=== PATIENT | female | born 1990 | race Two or more races ===

== ENCOUNTER 2017-03-28 19:17 | Emergency (ER) | payer OTHER, BC ==
[~2017-03-28] VITALS: Ht 162.6 cm; Wt 73.5 kg
[~2017-03-28 19:17] MED LIST: IBUP-1223 PO; NORE0.3513 PO; OXYC-302 PO; PREN1TAB60 PO
[2017-03-28 19:37] VITALS: BP 126/80
== END 2017-03-28 20:51 | disposition home or self-care (01) ==
LOC: ED 20:45
DX: O23.12 Infections of bladder in pregnancy, second trimester (principal); Z98.890 Other specified postprocedural states; Z3A.16 16 weeks gestation of pregnancy
CPT/HCPCS: 81001; 87077; 87086; 87186; 99284

== ENCOUNTER 2017-06-09 21:08 | Outpatient (CLI) | payer OTHER, BC ==
[~2017-06-09] VITALS: Ht 162.6 cm; Wt 72.7 kg
[2017-06-09 21:17] VITALS: BP 119/67
[2017-06-09] MEDS ORDERED: NITR100C56 PO (23:56)
== END 2017-06-10 00:11 | disposition home or self-care (01) ==
LOC: LDOP 21:08
PROVIDERS: ATTEND Obstetrics & Gynecology
DX: O46.92 Antepartum hemorrhage, unspecified, second trimester (principal); Z3A.25 25 weeks gestation of pregnancy
CPT/HCPCS: 36415; 59025; 81001; 82731; 87086; 87210; 87808; 99211; G0463

== ENCOUNTER 2017-07-10 16:46 | Outpatient (CLI) | payer OTHER, BC ==
[~2017-07-10] VITALS: Ht 162.6 cm; Wt 75.0 kg
[~2017-07-10 16:46] MED LIST changes: +NITR100C56 PO
[2017-07-10 17:45] VITALS: BP 101/62
[2017-07-10 18:54] LABS: MICROSCOPIC AUTO
[2017-07-10 18:56] LABS: CULTURE INDICATED? YES
== END 2017-07-10 18:30 | disposition home or self-care (01) ==
LOC: LDOP 16:46
PROVIDERS: ATTEND Obstetrics & Gynecology
DX: O46.8X2 Other antepartum hemorrhage, second trimester (principal)
CPT/HCPCS: 59025; 81001; 87086; 99211; G0463

== ENCOUNTER 2017-09-19 13:16 | Outpatient (CLI) | payer BC, OTHER ==
[2017-09-19 13:38] VITALS: BP 124/70
[2017-09-19] MEDS ORDERED: TERBUTALINE 1 MG/ML, 1ML SQ ONE (14:00)
[2017-09-19] MEDS ORDERED: TERBUTALINE 1 MG/ML, 1ML ONE (14:20)
== END 2017-09-19 15:05 | disposition home or self-care (01) ==
LOC: LDOP 13:16
PROVIDERS: ATTEND Obstetrics & Gynecology
DX: O99.343 Other mental disorders complicating pregnancy, third trimester (principal); F52.1 Sexual aversion disorder; Z3A.00 Weeks of gestation of pregnancy not specified
CPT/HCPCS: 59025; 99211; G0463

== ENCOUNTER 2017-09-29 13:15 | Inpatient (IN) | payer OTHER ==
[~2017-09-29] VITALS: Ht 162.6 cm; Wt 78.6 kg
[2017-09-29] MEDS ORDERED: OXYTOCIN 30U/ 0.9% NaCL 500ML 500 ML IV ONE (23:08)
[2017-09-29] MEDS ORDERED: D5%-LACTATED RINGERS 1,000 ML IV SCH (23:08)
[2017-09-29] MEDS ORDERED: OXYTOCIN 30U/ 0.9% NaCL 500ML 500 ML IV PRN (23:08)
[2017-09-29] MEDS ORDERED: NEWBORN KIT ONE (23:29)
[2017-09-29] MEDS ORDERED: FENTANYL PF 100 MCG/2ML IV PRN (23:30)
[2017-09-29] MEDS ORDERED: MISOPROSTOL 25 MCG TABLET VG PRN (23:30)
[2017-09-29] MEDS ORDERED: ONDANSETRON 2MG/ML, 2ML IVPush PRN (23:30)
[2017-09-29] MEDS ORDERED: FENTANYL PF 100 MCG/2ML IVPush PRN (23:30)
[2017-09-29] MEDS ORDERED: TERBUTALINE 1 MG/ML, 1ML IVPush PRN ×2 (23:30)
[2017-09-29] MEDS ORDERED: SODIUM CITRATE/CITRIC ACID 30 ML UDC PO PRN (23:30)
[2017-09-29] MEDS: LACTATED RINGERS 1,000 ML IV SCH (23:35)
[2017-09-29] MEDS ORDERED: OXYTOCIN 30U/ 0.9% NaCL 500ML 500 ML ONE (23:43)
[2017-09-29] MEDS ORDERED: MISOPROSTOL 25 MCG TABLET ONE (23:43)
[2017-09-29] MEDS ORDERED: MISOPROSTOL 200 MCG TABLET ONE (23:44)
[2017-09-29] MEDS ORDERED: LIDOCAINE 1%, 20ML ONE (23:44)
[2017-09-29 23:45] VITALS: BP 120/71
[2017-09-29 23:51] LABS: BASOPHILS # (AUTO) 0.07 x10^3/uL (0-0.1); BASOPHILS % (AUTO) 1 % (0-1); EOSINOPHILS # (AUTO) 0.06 x10^3/uL (0-0.4); EOSINOPHILS % (AUTO) 1 % (1-7); LYMPHOCYTES # (AUTO) 2.11 x10^3/uL (1-3.4); LYMPHOCYTES % (AUTO) 21 % (22-44); MD NO; MEAN CORPUSCULAR HGB CONC 33.8 g/dL (32.4-35.8); MEAN CORPUSCULAR VOLUME 82.7 fL (80-100); MEAN PLATELET VOLUME 7.7 fL (7.4-10.4); MONOCYTES # (AUTO) 0.62 x10^3/uL (0.2-0.8); MONOCYTES % (AUTO) 6 % (2-9); NEUTROPHILS # (AUTO) 7.05 x10^3/uL (1.8-6.8); NEUTROPHILS % (AUTO) 71 % (42-75); PLATELET COUNT 272 x10^3/uL (130-400); RED BLOOD COUNT 4.48 x10^6/uL (3.82-5.3); RED CELL DISTRIBUTION WIDTH 14.7 % (9.6-15.2)
[2017-09-30] MEDS: LACTATED RINGERS 1,000 ML IV SCH ×3 (05:15→11:06)
[2017-09-30] MEDS ORDERED: FENTANYL/BUPIV./NS/PF 250 ML EPIDCONT ONE (10:48)
[2017-09-30] MEDS ORDERED: BUPIVACAINE 0.25% ONE (10:48)
[2017-09-30] MEDS ORDERED: FENTANYL PF 100 MCG/2ML ONE (10:48)
[2017-09-30] MEDS ORDERED: LACTATED RINGERS 1,000 ML IVBOLUS PRN (12:00)
[2017-09-30] MEDS ORDERED: FENTANYL/BUPIV./NS/PF 250 ML EPIDCONT SCH (12:00)
[2017-09-30] MEDS ORDERED: EPHEDRINE 50 MG/ML, 1ML IVPush PRN (12:00)
[2017-09-30] MEDS ORDERED: LACTATED RINGERS 1,000 ML IV SCH (12:00)
[2017-09-30] MEDS ORDERED: ONDANSETRON 2MG/ML, 2ML IVPush PRN (12:00)
[2017-09-30] MEDS ORDERED: ONDANSETRON 2MG/ML, 2ML ONE (13:16)
[2017-09-30] MEDS ORDERED: LACTATED RINGERS 1,000 ML INTUTE PRN (14:00)
[2017-09-30] MEDS ORDERED: OXYTOCIN 30U/ 0.9% NaCL 500ML 500 ML IV SCH ×2 (16:43)
[2017-09-30] MEDS ORDERED: ONDANSETRON 2MG/ML, 2ML IV PRN (17:00)
[2017-09-30] MEDS ORDERED: CALCIUM CARBONATE 500 MG TAB.CHEW PO PRN (17:00)
[2017-09-30] MEDS ORDERED: HYDROcodone/APAP 5/325 TABLET PO PRN (17:00)
[2017-09-30] MEDS ORDERED: BISACODYL 10 MG SUPP PR PRN (17:00)
[2017-09-30] MEDS ORDERED: ACETAMINOPHEN 325 MG TABLET PO PRN ×3 (17:00)
[2017-09-30] MEDS ORDERED: DOCUSATE 100 MG CAPSULE PO PRN (17:00)
[2017-09-30] MEDS ORDERED: METHYLERGONOVINE 0.2 MG/ML IM PRN (17:00)
[2017-09-30] MEDS ORDERED: MISOPROSTOL 200 MCG TABLET PR PRN (17:00)
[2017-09-30 19:55] VITALS: BP 112/69
[2017-10-01 00:20] VITALS: BP 96/55
[2017-10-01] MEDS: IBUPROFEN 600 MG TABLET PO PRN ×3 (00:22→12:20)
[2017-10-01 04:00] VITALS: BP 96/62
[2017-10-01 05:29] LABS: BASOPHILS % (AUTO) 1 % (0-1); EOSINOPHILS # (AUTO) 0.08 x10^3/uL (0-0.4); EOSINOPHILS % (AUTO) 1 % (1-7); LYMPHOCYTES # (AUTO) 2.27 x10^3/uL (1-3.4); LYMPHOCYTES % (AUTO) 19 % (22-44); MD NO; MEAN CORPUSCULAR HEMOGLOBIN 27.7 pg (27.0-34.8); MEAN CORPUSCULAR HGB CONC 32.8 g/dL (32.4-35.8); MEAN CORPUSCULAR VOLUME 84.2 fL (80-100); MEAN PLATELET VOLUME 7.7 fL (7.4-10.4); MONOCYTES # (AUTO) 0.64 x10^3/uL (0.2-0.8); MONOCYTES % (AUTO) 5 % (2-9); NEUTROPHILS # (AUTO) 8.83 x10^3/uL (1.8-6.8); NEUTROPHILS % (AUTO) 74 % (42-75); PLATELET COUNT 231 x10^3/uL (130-400); RED BLOOD COUNT 4.22 x10^6/uL (3.82-5.3); RED CELL DISTRIBUTION WIDTH 14.9 % (9.6-15.2)
[2017-10-01 08:30] VITALS: BP 99/62
[2017-10-01] MEDS ORDERED: PRENATAL VIT/IRON/FA 1 EACH TABLET PO SCH (09:00)
[2017-10-01 12:00] VITALS: BP 102/68
[2017-10-01] MEDS ORDERED: IBUP-1222 PO (13:45)
[2017-10-01] MEDS ORDERED: DOCU-131 PO (13:45)
== END 2017-10-01 17:59 | disposition home or self-care (01) | DRG 775 ==
LOC: LDIP 22:27 → 2NW 09-30 19:29
PROVIDERS: ADMIT Obstetrics & Gynecology; ATTEND Obstetrics & Gynecology
PROC: 10E0XZZ Delivery of Products of Conception, External Approach (ICD-10-PCS; principal; 2017-09-30)
PROC: 10907ZC Drainage of Amniotic Fluid, Therapeutic from Products of Conception, Via Natural or Artificial Opening (ICD-10-PCS; 2017-09-30)
PROC: 3E0R3BZ Introduction of Anesthetic Agent into Spinal Canal, Percutaneous Approach (ICD-10-PCS; 2017-09-30)
PROC: 00HU33Z Insertion of Infusion Device into Spinal Canal, Percutaneous Approach (ICD-10-PCS; 2017-09-30)
DX: O76 Abnormality in fetal heart rate and rhythm complicating labor and delivery (principal); D64.9 Anemia, unspecified; O32.9XX0 Maternal care for malpresentation of fetus, unspecified, not applicable or unspecified; O99.02 Anemia complicating childbirth; O32.0XX0 Maternal care for unstable lie, not applicable or unspecified; Z37.0 Single live birth; Z3A.39 39 weeks gestation of pregnancy; Z83.3 Family history of diabetes mellitus
CPT/HCPCS: 36415; 76815; 85025; 86850; 86900; J2405; J3010; J7120; J7121

== ENCOUNTER 2019-04-17 00:56 | Outpatient (CLI) | payer OTHER ==
[~2019-04-17] VITALS: Ht 162.6 cm; Wt 75.0 kg
[~2019-04-17 00:56] MED LIST changes: +DOCU-131 PO; +IBUP-1222 PO
[2019-04-17 01:23] LABS: MICROSCOPIC INDICATED
[2019-04-17 01:26] LABS: AMPHETAMINE SCREEN, URINE Negative (Negative); BARBITURATE SCREEN, URINE Negative (Negative); BENZODIAZEPINE SCREEN, URINE Negative (Negative); CANNABINOID SCREEN, URINE Negative (Negative); COCAINE SCREEN, URINE Negative (Negative); METHADONE SCREEN, URINE Negative (Negative); OPIATE SCREEN, URINE Negative (Negative)
[2019-04-17] MEDS: LACTATED RINGERS 1,000 ML IV SCH ×4 (01:43→05:38)
[2019-04-17] MEDS ORDERED: POTASSIUM CHLORIDE 20 MEQ, MAGNESIUM SULFATE 1 GM, FOLIC ACID 1 MG, THIAMINE 200 MG, MV... IV SCH (03:00)
[2019-04-17] MEDS ORDERED: ONDANSETRON 2MG/ML, 2ML IVPush PRN ×2 (03:00→08:00)
[2019-04-17] MEDS ORDERED: ONDANSETRON 2MG/ML, 2ML ONE ×2 (04:05→07:53)
[2019-04-17 05:29] LABS: MICROSCOPIC INDICATED
[2019-04-17] MEDS ORDERED: ACETAMINOPHEN 325 MG TABLET ONE (06:21)
[2019-04-17] MEDS ORDERED: ACETAMINOPHEN 325 MG TABLET PO PRN (06:30)
[2019-04-17 08:33] LABS: BASOPHILS # (AUTO) 0.02 x10^3/uL (0-0.1); BASOPHILS % (AUTO) 0 % (0-1); EOSINOPHILS % (AUTO) 0 % (1-7); LYMPHOCYTES # (AUTO) 1.49 x10^3/uL (1-3.4); LYMPHOCYTES % (AUTO) 17 % (22-44); MD NO; MEAN CORPUSCULAR HEMOGLOBIN 28.6 pg (27.0-34.8); MEAN CORPUSCULAR HGB CONC 33.5 g/dL (32.4-35.8); MEAN CORPUSCULAR VOLUME 85.3 fL (80-100); MEAN PLATELET VOLUME 6.8 fL (7.4-10.4); MONOCYTES # (AUTO) 0.34 x10^3/uL (0.2-0.8); MONOCYTES % (AUTO) 4 % (2-9); NEUTROPHILS # (AUTO) 7.19 x10^3/uL (1.8-6.8); NEUTROPHILS % (AUTO) 80 % (42-75); PLATELET COUNT 163 x10^3/uL (130-400); RED BLOOD COUNT 4.12 x10^6/uL (3.82-5.3); RED CELL DISTRIBUTION WIDTH 13.3 % (9.6-15.2)
[2019-04-17 08:45] LABS: ALBUMIN 2.2 g/dL (3.4-5.0); ANION GAP 9 mmol/L (5-15); CALCIUM 7.4 mg/dL (8.5-10.1); CHLORIDE 107 mmol/L (98-107)
[2019-04-17 08:48] LABS: ALANINE AMINOTRANSFERASE 19 U/L (12-78); ALKALINE PHOSPHATASE 76 U/L (45-117); CREATININE 0.36 mg/dL (0.55-1.02); TOTAL PROTEIN 5.3 g/dL (6.4-8.2)
== END 2019-04-17 09:42 | disposition home or self-care (01) ==
LOC: LDOP 00:56 → LDIP 02:02 → UNDOADMOB 02:02 → LDOP 09:42 → UNDODISOB 09:42
PROVIDERS: ATTEND Obstetrics & Gynecology
DX: O99.283 Endocrine, nutritional and metabolic diseases complicating pregnancy, third trimester (principal); O99.353 Diseases of the nervous system complicating pregnancy, third trimester; O99.313 Alcohol use complicating pregnancy, third trimester; O26.893 Other specified pregnancy related conditions, third trimester; O21.2 Late vomiting of pregnancy; R10.30 Lower abdominal pain, unspecified; Z3A.34 34 weeks gestation of pregnancy
CPT/HCPCS: 36415; 59025; 80053; 80307; 81001; 85025; 87086; 96365; 96366; 96375; 96376; 99201; J2405; J3411; J3475; J3480; J7120; J7121; 96360; 96361; 96374; G0378; G0463

== ENCOUNTER 2019-12-08 10:49 | Emergency (ER) | payer MEDICAID, OTHER ==
[~2019-12-08] VITALS: Ht 162.6 cm; Wt 70.7 kg
[2019-12-08] MEDS ORDERED: FAMOTIDINE 20 MG/2 ML ONE (11:28)
[2019-12-08] MEDS ORDERED: ONDANSETRON 2MG/ML, 2ML ONE (11:28)
[2019-12-08] MEDS ORDERED: THIAMINE 100 MG/ML, 2ML ONE (11:28)
[2019-12-08] MEDS ORDERED: SODIUM CHLORIDE FLUSH 10ML SYR IVF ONE (11:30)
[2019-12-08] MEDS ORDERED: THIAMINE 100 MG/ML, 2ML IM ONE (11:30)
[2019-12-08] MEDS ORDERED: FAMOTIDINE 20 MG/2 ML IVPush ONE (11:30)
[2019-12-08] MEDS ORDERED: ONDANSETRON 2MG/ML, 2ML IM ONE (11:30)
[2019-12-08] MEDS ORDERED: SODIUM CHLORIDE 0.9% 1,000ML IVBOLUS ONE ×2 (11:30→12:30)
[2019-12-08] MEDS ORDERED: ONDANSETRON 2MG/ML, 2ML IVPush ONE (11:30)
--- NOTE | 2019-12-08 11:42 | NUR ---
PT STATES ETOH BINGE X5 DAYS, STATES HX OF SAME. STATES DOES NOT WANT DETOX, JUST WANTS TO "FEEL BETTER." PT IV STARTED, MEDICATED PER ORDERS. PT ON MONITORS, VSS. PT'S AUNT AT BEDSIDE. WILL FOLLOW ORDERS. AWAITING LAB RESULTS. CONT TO MONITOR.
[2019-12-08 11:46] LABS: BASOPHILS # (AUTO) 0.04 x10^3/uL (0-0.1); BASOPHILS % (AUTO) 0 % (0-1); EOSINOPHILS # (AUTO) 0.01 x10^3/uL (0-0.4); EOSINOPHILS % (AUTO) 0 % (1-7); LYMPHOCYTES % (AUTO) 18 % (22-44); MD NO; MEAN CORPUSCULAR HEMOGLOBIN 27.2 pg (27.0-34.8); MEAN CORPUSCULAR HGB CONC 33.2 g/dL (32.4-35.8); MEAN CORPUSCULAR VOLUME 81.9 fL (80-100); MEAN PLATELET VOLUME 7.5 fL (7.4-10.4); MONOCYTES # (AUTO) 0.38 x10^3/uL (0.2-0.8); MONOCYTES % (AUTO) 4 % (2-9); NEUTROPHILS # (AUTO) 7.14 x10^3/uL (1.8-6.8); NEUTROPHILS % (AUTO) 78 % (42-75); PLATELET COUNT 304 x10^3/uL (130-400); RED BLOOD COUNT 5.86 x10^6/uL (3.82-5.3); RED CELL DISTRIBUTION WIDTH 15.1 % (9.6-15.2)
[2019-12-08 12:00] LABS: ALANINE AMINOTRANSFERASE 32 U/L (12-78); ALBUMIN 4.1 g/dL (3.4-5.0); ANION GAP 10 mmol/L (5-15); CALCIUM 8.5 mg/dL (8.5-10.1); CHLORIDE 105 mmol/L (98-107)
[2019-12-08 12:04] LABS: ALKALINE PHOSPHATASE 111 U/L (45-117); TOTAL PROTEIN 8.6 g/dL (6.4-8.2)
--- NOTE | 2019-12-08 12:30 | NUR ---
PT STATES NAUSEA DECREASED, MEDICATONS EFFECTIVE. PT GIVEN WATER, PO CHALLENGE INITIATED. PT UNABLE TO URINATE CURRENTLY. PT REMAINS ON THE MONITORS. CONT TO MONITOR.
--- NOTE | 2019-12-08 13:15 | NUR ---
TASK RN: PT LYING ON SIDE. PT DRANK HALF A CUP OF WATER WITHOUT VOMITING BUT CONTINUES TO FEEL NAUSEATED. SECOND LITER OF FLUIDS INFUSING.
--- NOTE | 2019-12-08 13:56 | NUR ---
PT STATES SOME NAUSEA STILL, BUT OVERALL IS "FEELING BETTER." PT STATES SHE WOULD LIKE TO D/C HOME. ER AWARE, PT WILL BE D/C.
--- NOTE | 2019-12-08 14:15 | NUR ---
PT OK FOR D/C. PT STATES SHE IS FEELING BETTER. PT WITH STEADY GAIT, ABLE TO CARE FOR SELF. PT'S AUNT AT SIDE FOR D/C. PT VERBALIZED UNDERSTANDING OF D/C PAPERWORK.
[2019-12-08 14:16] VITALS: BP 118/67
== END 2019-12-08 14:26 | disposition home or self-care (01) ==
LOC: ED 14:17
DX: K29.20 Alcoholic gastritis without bleeding (principal); F10.129 Alcohol abuse with intoxication, unspecified; R11.2 Nausea with vomiting, unspecified; Y90.0 Blood alcohol level of less than 20 mg/100 ml
CPT/HCPCS: 36415; 80053; 80307; 83605; 83690; 84703; 85025; 96361; 96372; 96374; 96375; 99284; J2405; J3411; J3490; J7030